=== PATIENT | male | born 1965 | race Caucasian/White ===

== ENCOUNTER 2017-09-12 20:52 | Observation (INO) ==
[2017-09-12] MEDS ORDERED: Ipratropium/Albuterol Neb 3 ML IH ONE (21:18)
[2017-09-12 21:35] LABS: Basophils # 0.1 K/mcL (0.0-0.2); Basophils % 1.2 %; Eosinophils # 0.3 K/mcL (0.0-0.6); Eosinophils % 3.3 %; Hematocrit 43.4 % (37.5-50.1); Immature Granulocytes % 0.2 % (0-4); Lymphocytes # 2.2 K/mcL (0.6-4.6); Mean Corpuscular HGB Conc 34.6 g/dL (31.6-35.5); Mean Corpuscular Hemoglobin 33.7 pg (28.0-33.3); Mean Corpuscular Volume 97.5 fL (83.0-100.0); Mean Platelet Volume 10.1 fL (9.4-12.4); Monocytes # 0.8 K/mcL (0.0-1.3); Monocytes % 9.8 %; Neutrophils # 4.8 K/mcL (1.6-8.9); Platelet Count 114 K/mcL (140-400); Red Blood Count 4.45 M/mcL (4.19-5.50); Red Cell Distribution Width 13.7 % (11.5-14.5); Segmented Neutrophils % 58.5 %
[2017-09-12 21:41] LABS: Prothrombin Time 10.8 Seconds (9.4-12.1)
[2017-09-12 21:44] LABS: Activated Partial Thrombo Time 29.2 Seconds (26.0-36.0)
[2017-09-12 21:50] LABS: BUN/Creatinine Ratio 7 (6-26); Blood Urea Nitrogen 3 mg/dL (6-20); Calcium 9.2 mg/dL (8.6-10.3); Carbon Dioxide 27 mEq/L (23-29); Chloride 97 mEq/L (98-107); Glucose 94 mg/dL (70-105); Osmolality,Calculated 268 (280-300); Potassium 3.8 mEq/L (3.5-5.1); Sodium 131 mEq/L (136-145); eGFR For African Americans > 60 (> 60); eGFR For Non-African Americans > 60 (> 60)
[2017-09-12] MEDS ORDERED: methylPREDNISolone 125 MG/2 ML VIAL IVP ONE (22:02)
--- NOTE | 2017-09-12 22:08 | Emergency Department Note ---
Disposition Clinical Impression: COPD exacerbation, Hypoxia, Pneumonitis Disposition: Admitted As Inpatient Condition: Good Chest Pain HPI - General Chief Complaint: ED Chest Pain Stated Complaint: DINO/CP Time Seen by Provider: 09/12/17 21:06 Source: patient Limitations: no limitations Vital Signs Reviewed: Yes Nursing Notes Reviewed: Yes - History of Present Illness HPI Narrative: Patient presents for evaluation of chest pain and dyspnea. Patient states symptoms started several hours ago. Upon further questioning patient states that he has had viral symptoms for the past several days with runny nose and cough and congestion. Patient states that his breathing and chest pain described as a tightness. He describes not having any of his breathing treatments at home secondary to no longer having PCP follow-up. He describes numbness and tingling in the extremities. Evaluation patient has decreased breath sounds bilaterally. The patient's pulse ox was 88% on room air with good waveform. Patient's tachycardic at 120. Patient will need further evaluation with chest x-ray, blood work, EKG. D-dimer has been ordered. Patient does have a history of pneumothorax in the past - Bilateral. Severity scale (1-10): 8 - Related Data Home Medications Medication Instructions Recorded Confirmed No Known Home Drugs 09/12/17 09/12/17 Allergies Allergy/AdvReac Type Severity Reaction Status Date / Time No Known Allergies Allergy Verified 05/26/17 18:26 Review of Systems: CONSTITUTIONAL: No weight loss, fever, chills, weakness or fatigue. HEENT: Eyes: No visual changes. Ears, Nose, Throat: No hearing loss, difficulty talking or unable to swallow. SKIN: No rash or itching. CARDIOVASCULAR: Chest pain RESPIRATORY: Shortness of breath GASTROINTESTINAL: No anorexia, nausea, vomiting or diarrhea. No abdominal pain or blood. GENITOURINARY: No burning on urination or hematuria. NEUROLOGICAL: Adriel and tingling of all 4 extremities No headache, dizziness, syncope, paralysis, ataxia. No change in bowel or bladder control. MUSCULOSKELETAL: No muscle pain, back pain, joint pain or stiffness. Chest Pain PMH - Past Medical History Medical history: Reports: asthma, COPD Surgical history: Reports: other Psychiatric history: Reports: anxiety, depression - Social History Smoking Status: Current every day smoker Alcohol use: Reports: heavy, recent Drug use: Reports: none Physical Exam General: Well appearing, nontoxic, no acute distress Head: Normocephalic Atraumatic Eyes: PERRL, EOMI ENT: Airway patent, no stridor Neck: supple, no meningismus Chest: Decreased breath sounds bilaterally Cardiac: Regular rate and rhythm, no murmurs, rubs or gallops Abdomen: soft, nontender, nondistended; no guarding, rebound, or tenderness to percussion Musculoskeletal: Calves symmetric, nontender, no palpable cord Skin: No rash, normal skin tone Neuro: Alert and Oriented to person, place, and time; No focal deficit, - General Limitations: no limitations General appearance: alert Course - Reevaluation(s) Reevaluation #1: Patient's breath sounds improved slightly with albuterol. Patient has an elevated d-dimer. CTA ordered. Reevaluation #2: CTA shows concern for pneumonitis. Levaquin has been given. Patient has improved but is still requiring 2 L of oxygen. Not normally oxygen dependent. Will admit to the hospitalist for further evaluation. - Consultations Consultation #1: Discussed with hospitalist. Patient accepted for admission. Vital Signs Temperature 97.5 F L 09/12/17 20:54 Pulse Rate 110 09/12/17 20:54 Respiratory Rate 16 09/12/17 20:54 Blood Pressure 158/98 09/12/17 20:54 O2 Sat by Pulse Oximetry 97 09/12/17 20:54 Temperature 97.5 F L 09/12/17 20:54 Pulse Rate 109 09/12/17 23:14 Respiratory Rate 18 09/13/17 00:18 Blood Pressure 121/83 09/13/17 00:18 O2 Sat by Pulse Oximetry 95 09/12/17 23:14 Oxygen Delivery Oxygen Delivery Nasal Cannula Chest Pain - Medical Records Medical records reviewed: Yes I reviewed the patient's medical records. - Lab Data Lab results reviewed: Yes I reviewed the patient's lab results. Result diagrams: 09/12/17 21:23 09/12/17 21:23 Lab Results 09/12/17 09/12/17 09/12/17 Range/Units 21:23 21:23 21:23 WBC 8.2 (4.3-11.1) K/mcL RBC 4.45 (4.19-5.50) M/mcL Hgb 15.0 (12.9-16.9) g/dL Hct 43.4 (37.5-50.1) % MCV 97.5 (83.0-100.0) fL MCH 33.7 H (28.0-33.3) pg MCHC 34.6 (31.6-35.5) g/dL RDW 13.7 (11.5-14.5) % Plt Count 114 L (140-400) K/mcL MPV 10.1 (9.4-12.4) fL Immature Gran % 0.2 (0-4) % Seg Neutrophils % 58.5 % Lymphocytes % 27.0 % Monocytes % 9.8 % Eosinophils % 3.3 % Basophils % 1.2 % Neutrophils # 4.8 (1.6-8.9) K/mcL Lymphocytes # 2.2 (0.6-4.6) K/mcL Monocytes # 0.8 (0.0-1.3) K/mcL Eosinophils # 0.3 (0.0-0.6) K/mcL Basophils # 0.1 (0.0-0.2) K/mcL PT 10.8 (9.4-12.1) Seconds INR 1.0 APTT 29.2 (26.0-36.0) Seconds D-Dimer 575 H (0-500) ng/mLFEU Sodium (136-145) mEq/L Potassium (3.5-5.1) mEq/L Chloride (98-107) mEq/L Carbon Dioxide (23-29) mEq/L BUN (6-20) mg/dL Creatinine (0.70-1.30) mg/dL Est GFR ( Amer) (> 60) Est GFR (Non-Af Amer) (> 60) BUN/Creatinine Ratio (6-26) Glucose (70-105) mg/dL Calculated Osmolality (280-300) Lactic Acid 1.7 (0.5-2.2) mmol/L Calcium (8.6-10.3) mg/dL Troponin I (< 0.04) ng/mL 09/12/17 09/12/17 Range/Units 21:23 21:23 WBC (4.3-11.1) K/mcL RBC (4.19-5.50) M/mcL Hgb (12.9-16.9) g/dL Hct (37.5-50.1) % MCV (83.0-100.0) fL MCH (28.0-33.3) pg MCHC (31.6-35.5) g/dL RDW (11.5-14.5) % Plt Count (140-400) K/mcL MPV (9.4-12.4) fL Immature Gran % (0-4) % Seg Neutrophils % % Lymphocytes % % Monocytes % % Eosinophils % % Basophils % % Neutrophils # (1.6-8.9) K/mcL Lymphocytes # (0.6-4.6) K/mcL Monocytes # (0.0-1.3) K/mcL Eosinophils # (0.0-0.6) K/mcL Basophils # (0.0-0.2) K/mcL PT (9.4-12.1) Seconds INR APTT (26.0-36.0) Seconds D-Dimer (0-500) ng/mLFEU Sodium 131 L (136-145) mEq/L Potassium 3.8 (3.5-5.1) mEq/L Chloride 97 L (98-107) mEq/L Carbon Dioxide 27 (23-29) mEq/L BUN 3 L (6-20) mg/dL Creatinine 0.43 L (0.70-1.30) mg/dL Est GFR ( Amer) > 60 (> 60) Est GFR (Non-Af Amer) > 60 (> 60) BUN/Creatinine Ratio 7 (6-26) Glucose 94 (70-105) mg/dL Calculated Osmolality 268 L (280-300) Lactic Acid (0.5-2.2) mmol/L Calcium 9.2 (8.6-10.3) mg/dL Troponin I < 0.03 (< 0.04) ng/mL - Radiology Data Radiology results reviewed: Yes I reviewed the patient's radiology results. - EKG Data EKG attestation: Yes I reviewed and interpreted this EKG. EKG results narrative: EKG shows sinus tachycardia with ventricular rate of 120. MO interval 170. QRS 87. QTC 371. Sinus tachycardia without ST elevation or depression. Since previous EKG of 01/08/17 was also tachycardic at 121. Attestation Statement - Attestation Attestation: I examined this patient and my medical decision-making was reviewed with the Resident Physician. I agree with the documented findings, disposition and treatment plan as described except to the extent set forth below. Patient presents to the ED with chest pain and shortness of breath. Onset several days ago. He is out of medicines for his home nebulizer. Has COPD. Alcoholic. On examination he is in no acute distress. His lung sounds are significantly diminished. He is tachycardic. Afebrile. Plan. Chest x-ray with cardiac workup. Nebs and steroids. He is hypoxic on room air. He is tachycardic. We will check d-dimer. 35 minutes of critical care exclusive of several immobile procedures.
[2017-09-12] MEDS ORDERED: *HR* LORazepam 2 MG/ML VIAL IVP ONE (22:48)
[2017-09-12] MEDS ORDERED: *HR* Morphine 2 MG/ML SYRINGE IVP ONE (22:48)
[2017-09-12] MEDS ORDERED: Levofloxacin 750 MG/150 ML 750 MG/150 ML BAG IVPB ONE (23:27)
[2017-09-13] MEDS ORDERED: Naloxone 0.4 MG/ML INJ IVP PRN (02:25)
[2017-09-13] MEDS ORDERED: Acetaminophen 325 MG TABLET PO PRN (02:25)
[2017-09-13] MEDS ORDERED: Ondansetron 4 MG/2 ML VIAL IVP PRN (02:25)
[2017-09-13] MEDS ORDERED: *HR* LORazepam 2 MG/ML VIAL IVP PRN ×2 (02:34)
[2017-09-13] MEDS ORDERED: *HR* Promethazine 25 MG/ML VIAL IVP PRN (02:34)
[2017-09-13] MEDS: Nicotine 21 MG PATCH.TD24 TD SCH ×2 (02:44→08:09)
[2017-09-13] MEDS: *HR* HYDROcodone/Acet 5/325 mg TABLET PO PRN ×4 (02:44→23:56)
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
[2017-09-13] MEDS: Ipratropium/Albuterol Neb 3 ML IH SCH ×8 (03:52→23:30)
[2017-09-13] MEDS: *HR* HYDROmorphone (PF) 1 MG/ML SYRINGE IVP PRN ×3 (04:20→18:29)
[2017-09-13] MEDS: *HR* LORazepam 2 MG/ML VIAL IVP PRN ×3 (04:29→23:56)
[2017-09-13] MEDS: Ampicillin/Sulbactam 3,000 MG in 0.9 % Sodium Chloride Mini Bag 100 ML IVPB SCH ×3 (05:05→17:44)
[2017-09-13] MEDS: *HR* Heparin 5,000 UNIT/ML VIAL SQ SCH ×2 (05:09→17:39)
[2017-09-13 06:06] LABS: Basophils % 0.4 %; Hematocrit 40.3 % (37.5-50.1); Hemoglobin 13.5 g/dL (12.9-16.9); Immature Granulocytes % 0.4 % (0-4); Lymphocytes # 0.4 K/mcL (0.6-4.6); Lymphocytes % 8.3 %; Mean Corpuscular HGB Conc 33.5 g/dL (31.6-35.5); Mean Corpuscular Volume 98.5 fL (83.0-100.0); Mean Platelet Volume 10.7 fL (9.4-12.4); Monocytes # 0.1 K/mcL (0.0-1.3); Neutrophils # 4.6 K/mcL (1.6-8.9); Platelet Count 105 K/mcL (140-400); Red Blood Count 4.09 M/mcL (4.19-5.50); Red Cell Distribution Width 13.7 % (11.5-14.5); Segmented Neutrophils % 89.9 %
[2017-09-13 06:13] LABS: BUN/Creatinine Ratio 10 (6-26); Blood Urea Nitrogen 6 mg/dL (6-20); Carbon Dioxide 26 mEq/L (23-29); Chloride 104 mEq/L (98-107); Glucose 181 mg/dL (70-105); Magnesium 1.7 mg/dL (1.6-2.6); Osmolality,Calculated 282 (280-300); Potassium 4.6 mEq/L (3.5-5.1); Sodium 135 mEq/L (136-145); eGFR For African Americans > 60 (> 60); eGFR For Non-African Americans > 60 (> 60)
[2017-09-13] MEDS ORDERED: predniSONE 20 MG TABLET PO SCH (09:00)
--- NOTE | 2017-09-13 14:09 | Event Note ---
Date of Encounter: 09/13/17 Time of Encounter: 10:00 Seen and examined at bedside, says he feels shaky like he is in withdrawal. No chest pain or shortness of breath. Has a nonproductive cough. (1) Pneumonia: Pt is alcoholic; hx heavily daily drinking. CTA shows Rt side pneumonitis, consider aspiration pneumonia given pt's history of alcoholism. Cont IV unasyn, steroids and PRN oxygen. [place] PCR, urinary antigens and sputum culture pending (2) Alcoholism: CIWA protocol. Place librium 50mg tid now, need gradually taper down. (3) Adrenal adenoma: Incidental finding by CTA. F/U in 12 months per radiology recommendation. (4) DVT prophylaxiS : Heparin (5) Acute exacerbation of chronic obstructive airways disease: Management as above.
[2017-09-13 15:59] LABS: Adenovirus Not Detected (Not Detect); Bordetella Pertussis Not Detected (Not Detect); Chlamydophila pneumoniae Not Detected (Not Detect); Coronavirus 229E Not Detected (Not Detect); Coronavirus HKU1 Not Detected (Not Detect); Coronavirus NL63 Not Detected (Not Detect); Coronavirus OC43 Not Detected (Not Detect); Human Metapneumovirus Not Detected (Not Detect); Human Rhinovirus/Enterovirus ***DETECTED*** (Not Detect); Influenza A Subtype 2009 H1 Not Detected (Not Detect); Influenza A Untypeable Not Detected (Not Detect); Influenza B Not Detected (Not Detect); Mycoplasma pneumoniae Not Detected (Not Detect); Parainfluenza Virus 1 Not Detected (Not Detect); Parainfluenza Virus 2 Not Detected (Not Detect); Parainfluenza Virus 3 Not Detected (Not Detect); Parainfluenza Virus 4 Not Detected (Not Detect); Respiratory Syncytial Virus Not Detected (Not Detect)
[2017-09-13] MEDS ORDERED: Thiamine (B-1) 100 MG, Folic Acid 1 MG, MVI, adult with vitamin K 10 ML in 0.9 % Sodi... IVPB SCH (18:00)
[2017-09-14] MEDS: Ampicillin/Sulbactam 3,000 MG in 0.9 % Sodium Chloride Mini Bag 100 ML IVPB SCH ×2 (00:36→05:19)
[2017-09-14] MEDS: Ipratropium/Albuterol Neb 3 ML IH SCH ×2 (03:51→03:52)
[2017-09-14] MEDS: *HR* Heparin 5,000 UNIT/ML VIAL SQ SCH (05:18)
[2017-09-14] MEDS: *HR* LORazepam 2 MG/ML VIAL IVP PRN (05:19)
[2017-09-14 06:50] VITALS: BP 130/86
--- NOTE | 2017-09-16 06:58 | Electrocardiograph Report ---
[place] [id number] Test Date: 2017-09-12 Pat Name: Chris Kelley Department: 104 Room: [facility] Gender: M [employer] Installer: KERVIN : [id number] Requested By: Bobby Jamison Order Number: [id number] Reading MD: Dillon Fowler MD Measurements Intervals [place] Rate: 120 P: 85 AK: 170 QRS: 96 QRSD: 97 T: 63 QT: 300 QTc: 371 Interpretive Statements SINUS TACHYCARDIA BORDERLINE RIGHT AXIS DEVIATION BASELINE ARTIFACT Electronically Signed On 09-16-2017 6:56:39 EST by Dillon Fowler MD
--- NOTE | 2017-10-15 08:04 | Event Note ---
Date of Encounter: 09/14/17 Time of Encounter: 17:00 Patient left AMA before he was seen or examined
== END 2017-09-14 07:30 | disposition left against medical advice (07) ==
LOC: 3BNU 20:52 → EMEROO 20:52 → 3BNU 09-13 00:20
PROVIDERS: ADMIT Pediatrics; ATTEND Registered Nurse

== ENCOUNTER 2020-10-05 15:37 | Inpatient (IN) ==
[2020-10-05] MEDS ORDERED: Ipratropium/Albuterol Neb 3 ML IH ONE (16:08)
[2020-10-05] MEDS ORDERED: Folic Acid 1 MG in 0.9 % Sodium Chloride 50 ML IVPB ONE (16:10)
[2020-10-05] MEDS ORDERED: 0.9 % Sodium Chloride 1,000 ML IVC ONE (16:10)
[2020-10-05] MEDS ORDERED: Thiamine (B-1) 200 MG/2 ML VIAL IM ONE (16:10)
[2020-10-05 16:39] LABS: Prothrombin Time 11.2 Seconds (9.4-12.1)
[2020-10-05 16:40] LABS: Mean Corpuscular HGB Conc 34.4 g/dL (31.6-35.5); Red Cell Distribution Width 15.8 % (11.5-14.5)
[2020-10-05 16:41] LABS: Basophils # 0.1 K/mcL (0.0-0.2); Eosinophils # 0.2 K/mcL (0.0-0.6); Eosinophils % 3.9 %; Hematocrit 43.3 % (37.5-50.1); Hemoglobin 14.9 g/dL (12.9-16.9); Immature Granulocytes % 0.5 % (0-4); Immature Platelets 8.2 % (1.1-6.1); Lymphocytes # 2.2 K/mcL (0.6-4.6); Lymphocytes % 36.5 %; Mean Corpuscular Hemoglobin 33.6 pg (28.0-33.3); Mean Corpuscular Volume 97.7 fL (83.0-100.0); Mean Platelet Volume 10.1 fL (9.4-12.4); Monocytes # 0.5 K/mcL (0.0-1.3); Monocytes % 8.3 %; Neutrophils # 2.9 K/mcL (1.6-8.9); Platelet Count 100 K/mcL (140-400); Red Blood Count 4.43 M/mcL (4.19-5.50); Segmented Neutrophils % 48.8 %; White Blood Count 5.9 K/mcL (4.3-11.1)
[2020-10-05 16:42] LABS: Activated Partial Thrombo Time 29.1 Seconds (26.0-36.0)
[2020-10-05 16:50] LABS: VBG HCO3 27 mEq/L (21-27); VBG PCO2 49 mmHg (41-51); VBG PH 7.34 pH Units (7.32-7.42); VBG PO2 46 mmHg (25-50)
[2020-10-05 17:00] LABS: Alanine Aminotransferase 35 Units/L (7-52); Albumin 4.2 g/dL (3.5-5.7); Albumin/Globulin Ratio 1.4 (1.1-2.2); Alkaline Phosphatase 71 Units/L (34-104); Aspartate Amino Transferase 76 Units/L (13-39); BUN/Creatinine Ratio 9 (6-26); Bilirubin,Direct 0.1 mg/dL (0.0-0.2); Bilirubin,Indirect 0.4 mg/dL (0.0-1.0); Bilirubin,Total 0.5 mg/dL (0.3-1.0); Blood Urea Nitrogen 4 mg/dL (6-20); Calcium 8.9 mg/dL (8.6-10.3); Carbon Dioxide 27 mEq/L (23-29); Chloride 91 mEq/L (98-107); Glucose 87 mg/dL (70-105); Osmolality,Calculated 258 (280-300); Potassium 4.1 mEq/L (3.5-5.1); Sodium 126 mEq/L (136-145); Total Protein 7.2 g/dL (6.4-8.9); Troponin I < 0.03 ng/mL (< 0.04); eGFR For African Americans > 60 (> 60); eGFR For Non-African Americans > 60 (> 60)
[2020-10-05] MEDS ORDERED: Ondansetron 4 MG/2 ML VIAL IVP PRN (18:28)
[2020-10-05] MEDS ORDERED: Naloxone 0.4 MG/ML INJ IVP PRN (18:28)
[2020-10-05] MEDS ORDERED: *HR* HYDROcodone/Acet 5/325 mg TABLET PO PRN (18:28)
[2020-10-05] MEDS ORDERED: Acetaminophen 325 MG TABLET PO PRN (18:28)
[2020-10-05 18:31] LABS: Adenovirus Not Detected (Not Detect); Bordetella Pertussis Not Detected (Not Detect); Chlamydophila pneumoniae Not Detected (Not Detect); Coronavirus 229E Not Detected (Not Detect); Coronavirus HKU1 Not Detected (Not Detect); Coronavirus NL63 Not Detected (Not Detect); Coronavirus OC43 Not Detected (Not Detect); Human Metapneumovirus Not Detected (Not Detect); Human Rhinovirus/Enterovirus Not Detected (Not Detect); Influenza A Subtype 2009 H1 Not Detected (Not Detect); Influenza B Not Detected (Not Detect); Mycoplasma pneumoniae Not Detected (Not Detect); Parainfluenza Virus 1 Not Detected (Not Detect); Parainfluenza Virus 2 Not Detected (Not Detect); Parainfluenza Virus 3 Not Detected (Not Detect); Parainfluenza Virus 4 Not Detected (Not Detect); Respiratory Syncytial Virus Not Detected (Not Detect); SARS-CoV-2 Not Detected (Not Detect)
[2020-10-05] MEDS ORDERED: *HR* LORazepam 2 MG/ML VIAL IVP PRN ×3 (19:45)
[2020-10-05] MEDS ORDERED: Ipratropium/Albuterol Neb 3 ML IH PRN (19:46)
[2020-10-05] MEDS ORDERED: Saline Nasal Spray 44 ML BOTTLE NS PRN (19:55)
[2020-10-05] MEDS ORDERED: Benzonatate 100 MG CAPSULE PO PRN (19:55)
[2020-10-05] MEDS ORDERED: MethylPREDNISolone 40 MG/ML VIAL IVP SCH (20:00)
[2020-10-05] MEDS: Ipratropium/Albuterol Neb 3 ML IH SCH ×2 (20:07→23:58)
[2020-10-05] MEDS: Budesonide/Formoterol 160/4.5 1 PUFF INH IH SCH (20:09)
[2020-10-05] MEDS: Nicotine 21 MG PATCH.TD24 TD SCH (21:44)
[2020-10-06] MEDS: Melatonin 3 MG TABLET PO PRN ×2 (01:34→22:53)
[2020-10-06] MEDS: Ipratropium/Albuterol Neb 3 ML IH SCH ×5 (03:58→19:34)
[2020-10-06 06:03] LABS: Immature Granulocytes % 0.5 % (0-4)
[2020-10-06 06:05] LABS: Basophils % 1.4 %; Hematocrit 36.4 % (37.5-50.1); Hemoglobin 12.4 g/dL (12.9-16.9); Immature Platelets 6.2 % (1.1-6.1); Lymphocytes # 0.3 K/mcL (0.6-4.6); Lymphocytes % 12.6 %; Mean Corpuscular HGB Conc 34.1 g/dL (31.6-35.5); Mean Corpuscular Hemoglobin 32.9 pg (28.0-33.3); Mean Corpuscular Volume 96.6 fL (83.0-100.0); Mean Platelet Volume 10.2 fL (9.4-12.4); Monocytes # 0.1 K/mcL (0.0-1.3); Monocytes % 2.3 %; Red Blood Count 3.77 M/mcL (4.19-5.50); Red Cell Distribution Width 15.5 % (11.5-14.5); Segmented Neutrophils % 83.2 %; White Blood Count 2.2 K/mcL (4.3-11.1)
[2020-10-06 06:08] LABS: Neutrophils # 1.8 K/mcL (1.6-8.9); Platelet Count 85 K/mcL (140-400)
[2020-10-06 06:25] LABS: Alanine Aminotransferase 28 Units/L (7-52); Albumin 3.8 g/dL (3.5-5.7); Albumin/Globulin Ratio 1.5 (1.1-2.2); Alkaline Phosphatase 63 Units/L (34-104); Aspartate Amino Transferase 50 Units/L (13-39); BUN/Creatinine Ratio 16 (6-26); Bilirubin,Total 0.3 mg/dL (0.3-1.0); Blood Urea Nitrogen 7 mg/dL (6-20); Calcium 9.2 mg/dL (8.6-10.3); Carbon Dioxide 26 mEq/L (23-29); Chloride 98 mEq/L (98-107); Chol/HDL Ratio 1.6 (0-4.9); Cholesterol 129 mg/dL (< 200); Globulin 2.5 g/dL (2.4-3.5); Glucose 168 mg/dL (70-105); HDL Cholesterol 82 mg/dL (40-59); LDL Cholesterol,Calculated 42 mg/dL (< 100); Magnesium 1.7 mg/dL (1.6-2.6); Osmolality,Calculated 274 (280-300); Phosphorous 3.2 mg/dL (2.7-4.5); Potassium 4.2 mEq/L (3.5-5.1); Sodium 131 mEq/L (136-145); Total Protein 6.3 g/dL (6.4-8.9); Triglycerides 24 mg/dL (< 150); eGFR For African Americans > 60 (> 60); eGFR For Non-African Americans > 60 (> 60)
[2020-10-06 06:39] LABS: Hypochromasia Present (Not Present); Platelet Estimate Decreased (Normal)
[2020-10-06] MEDS ORDERED: Albuterol 2.5 MG/3 ML NEBULIZER IH PRN (07:17)
[2020-10-06 07:20] LABS: Bilirubin,Urine Negative (Negative); Blood,Urine Negative (Negative); Clarity,Urine Clear (Clear); Color,Urine Light-Yellow (Yellow); Glucose,Urine (UA) 200 mg/dL (Normal); Ketones,Urine Negative (Negative); Leukocyte Esterase,Urine Negative (Negative); Nitrite,Urine Negative (Negative); Protein,Urine Trace mg/dL (Neg-Trace); RBC,Urine 0-3 per hpf (0-3); Specific Gravity,Urine 1.017 (1.010-1.025); Squamous Epithelial Cell,Urine Few per hpf (None-Few); Urobilinogen,Urine Normal (Normal); WBC,Urine 0-3 per hpf (0-3)
[2020-10-06] MEDS: Budesonide/Formoterol 160/4.5 1 PUFF INH IH SCH ×2 (07:35→22:19)
[2020-10-06 08:27] LABS: Amphetamine Screen,Urine Negative ng/mL (Cutoff=1000); Barbiturate Screen,Urine Negative ng/mL (Cutoff=200); Benzodiazepines Screen,Urine Negative ng/mL (Cutoff=200); Cannabinoid Screen,Urine Negative ng/mL (Cutoff = 50)
[2020-10-06 08:28] LABS: Opiate Screen,Urine Negative ng/mL (Cutoff=300); Phencyclidine Screen,Urine Negative ng/mL (Cutoff=25)
[2020-10-06 08:50] LABS: Cocaine Screen,Urine Negative ng/mL (Cutoff= 300)
[2020-10-06] MEDS ORDERED: Nicotine 21 MG PATCH.TD24 TD SCH (09:00)
[2020-10-06] MEDS: Vitamin B Complex/Vit C/Vit E 1 EACH TABLET PO SCH (09:15)
[2020-10-06] MEDS: Thiamine (B-1) 100 MG TABLET PO SCH (09:15)
[2020-10-06] MEDS: Multivit/Ca/Min/Fe/FA 1 TAB TABLET PO SCH (09:15)
[2020-10-06] MEDS: Folic Acid 1 MG TABLET PO SCH (09:16)
[2020-10-06] MEDS: predniSONE 20 MG TABLET PO SCH (09:16)
[2020-10-06] MEDS: Gabapentin 300 MG CAPSULE PO SCH ×2 (16:18→20:42)
[2020-10-06] MEDS: Nicotine 21 MG PATCH.TD24 TD SCH (20:42)
[2020-10-07] MEDS: Ipratropium/Albuterol Neb 3 ML IH SCH ×3 (00:03→07:30)
[2020-10-07 04:17] LABS: Hematocrit 33.7 % (37.5-50.1); Hemoglobin 11.8 g/dL (12.9-16.9); Immature Platelets 8.4 % (1.1-6.1); Mean Corpuscular Hemoglobin 33.4 pg (28.0-33.3); Mean Corpuscular Volume 95.5 fL (83.0-100.0); Mean Platelet Volume 10.9 fL (9.4-12.4); Red Blood Count 3.53 M/mcL (4.19-5.50); Red Cell Distribution Width 15.7 % (11.5-14.5); White Blood Count 7.1 K/mcL (4.3-11.1)
[2020-10-07 04:36] LABS: BUN/Creatinine Ratio 16 (6-26); Blood Urea Nitrogen 6 mg/dL (6-20); Calcium 8.9 mg/dL (8.6-10.3); Carbon Dioxide 26 mEq/L (23-29); Chloride 96 mEq/L (98-107); Glucose 98 mg/dL (70-105); Osmolality,Calculated 268 (280-300); Potassium 3.7 mEq/L (3.5-5.1); Sodium 130 mEq/L (136-145); eGFR For African Americans > 60 (> 60); eGFR For Non-African Americans > 60 (> 60)
[2020-10-07 07:17] VITALS: BP 141/82
[2020-10-07] MEDS: Budesonide/Formoterol 160/4.5 1 PUFF INH IH SCH (07:30)
[2020-10-07] MEDS: Multivit/Ca/Min/Fe/FA 1 TAB TABLET PO SCH (08:14)
[2020-10-07] MEDS: Vitamin B Complex/Vit C/Vit E 1 EACH TABLET PO SCH (08:15)
[2020-10-07] MEDS: Thiamine (B-1) 100 MG TABLET PO SCH (08:15)
[2020-10-07] MEDS: Gabapentin 300 MG CAPSULE PO SCH (08:15)
[2020-10-07] MEDS: Folic Acid 1 MG TABLET PO SCH (08:15)
[2020-10-07] MEDS: predniSONE 20 MG TABLET PO SCH (08:15)
[2020-10-07] MEDS ORDERED: FLU Vac QV 20-21 (6Month+)/PF 0.5 ML SYRINGE IM ONE (10:18)
== END 2020-10-07 11:14 | disposition home or self-care (01) | DRG 190 ==
LOC: SUATTDRO → 3ANU 15:37 → EMEROOARM 15:37 → SUATTDRO 18:45 → 3ANU 19:37
PROVIDERS: ADMIT Internal Medicine; ATTEND Family Medicine